=== PATIENT | male | born 1935 | race Caucasian/White ===

== ENCOUNTER 2018-09-17 06:34 | Emergency (ER) | payer MEDICARE, OTHER ==
[~2018-09-17] VITALS: Ht 172.7 cm; Wt 81.8 kg
[~2018-09-17 06:34] MED LIST: ASPI81TA52 PO; FLO0.4C PO; OMEP40CA13 PO
[2018-09-17] MEDS ORDERED: aspirin 81mg tab.chew PO ONE (06:40)
[2018-09-17 07:03] LABS: BASOPHILS % (AUTO) 0.3 % (0-1); EOSINOPHILS # (AUTO) 0.1 X10'3 (0-0.9); HEMATOCRIT 45.2 % (42.0-52.0); HEMOGLOBIN 15.8 g/dl (14.0-17.9); LYMPHOCYTES # (AUTO) 1.2 X10'3 (1.1-4.8); LYMPHOCYTES % (AUTO) 8.8 % (21-51); MEAN CORPUSCULAR HEMOGLOBIN 33.4 PG (27.0-31.0); MEAN CORPUSCULAR VOLUME 95.5 FL (78-98); MEAN PLATELET VOLUME 9.2 FL (7.4-10.4); MONOCYTES # (AUTO) 0.8 X10'3 (0-0.9); MONOCYTES % (AUTO) 5.8 % (2-12); NEUTROPHILS # (AUTO) 11.5 X10'3 (1.8-7.7); NEUTROPHILS % (AUTO) 84.1 % (42-75); PLATELET COUNT 270 X10'3 (140-440); RED BLOOD COUNT 4.74 X10'6 (4.70-6.10); RED CELL DISTRIBUTION WIDTH 13.2 % (11.5-14.5); WHITE BLOOD COUNT 13.7 X10'3 (4.5-11.0)
[2018-09-17] MEDS ORDERED: PANT-47 PO (07:15)
[2018-09-17 07:17] LABS: ALANINE AMINOTRANSFERASE 25 U/L (12-78); ALBUMIN 3.7 G/DL (3.4-5.0); ALKALINE PHOSPHATASE 80 IU/L (46-116); ANION GAP 9 (8-16); ASPARTATE AMINO TRANSFERASE 19 U/L (10-37); BILIRUBIN,TOTAL 0.6 MG/DL (0.1-1.0); BLOOD UREA NITROGEN 16 MG/DL (7-18); CALCIUM 9.1 MG/DL (8.5-10.1); CHLORIDE 104 MMOL/L (99-107); GLUCOSE 127 MG/DL (70-104); POTASSIUM 4.1 MMOL/L (3.5-5.1); SODIUM 139 MMOL/L (135-145); TOTAL CARBON DIOXIDE 26.4 MMOL/L (24-32); TOTAL PROTEIN 7.4 G/DL (6.4-8.2); eGFR 71 ML/MIN
[2018-09-17 07:25] LABS: MAGNESIUM 2.1 MG/DL (1.5-2.4)
[2018-09-17] MEDS ORDERED: iohexol 300mg/ml 100ml inj. ONE (07:29)
--- NOTE | 2018-09-17 07:42 | NUR ---
PT OUT TO CT VIA [facility] WITH [employer]
--- NOTE | 2018-09-17 08:02 | NUR ---
PT RETURNS FROM CT
[2018-09-17 10:35] VITALS: BP 160/72
== END 2018-09-17 10:52 | disposition home or self-care (01) ==
LOC: ER 06:34
DX: R07.89 Other chest pain (principal); K52.9 Noninfective gastroenteritis and colitis, unspecified; I25.10 Atherosclerotic heart disease of native coronary artery without angina pectoris; E78.00 Pure hypercholesterolemia, unspecified; K21.9 Gastro-esophageal reflux disease without esophagitis; G89.29 Other chronic pain; N40.0 Benign prostatic hyperplasia without lower urinary tract symptoms; Z95.1 Presence of aortocoronary bypass graft; Z79.82 Long term (current) use of aspirin; Z79.899 Other long term (current) drug therapy; Z98.890 Other specified postprocedural states
CPT/HCPCS: 36415; 71045; 71260; 74177; 80053; 83735; 83880; 84484; 85025; 93005; 99284; Q9967

== ENCOUNTER 2018-11-11 09:50 | Observation (INO) | payer MEDICARE, OTHER ==
[~2018-11-11] VITALS: Ht 172.7 cm; Wt 83.0 kg
[~2018-11-11 09:50] MED LIST changes: -OMEP40CA13 PO; +PANT-47 PO
[2018-11-11] MEDS ORDERED: aspirin 325mg tablet PO ONE (10:25)
[2018-11-11 11:04] LABS: BASOPHILS % (AUTO) 0.5 % (0-1); EOSINOPHILS # (AUTO) 0.2 X10'3 (0-0.9); EOSINOPHILS % (AUTO) 2.3 % (0-6); HEMATOCRIT 42.3 % (42.0-52.0); HEMOGLOBIN 14.5 g/dl (14.0-17.9); LYMPHOCYTES # (AUTO) 0.9 X10'3 (1.1-4.8); LYMPHOCYTES % (AUTO) 11.5 % (21-51); MEAN CORPUSCULAR HEMOGLOBIN 32.4 PG (27.0-31.0); MEAN CORPUSCULAR HGB CONC 34.3 g/dL (33.0-36.5); MEAN CORPUSCULAR VOLUME 94.3 FL (78-98); MEAN PLATELET VOLUME 9.1 FL (7.4-10.4); MONOCYTES # (AUTO) 0.7 X10'3 (0-0.9); MONOCYTES % (AUTO) 9.3 % (2-12); NEUTROPHILS # (AUTO) 5.8 X10'3 (1.8-7.7); NEUTROPHILS % (AUTO) 76.4 % (42-75); PLATELET COUNT 240 X10'3 (140-440); RED BLOOD COUNT 4.48 X10'6 (4.70-6.10); RED CELL DISTRIBUTION WIDTH 13.7 % (11.5-14.5); WHITE BLOOD COUNT 7.6 X10'3 (4.5-11.0)
[2018-11-11 11:22] LABS: ALANINE AMINOTRANSFERASE 23 U/L (12-78); ALBUMIN 3.3 G/DL (3.4-5.0); ALBUMIN/GLOBULIN RATIO 0.9 (1.1-1.5); ALKALINE PHOSPHATASE 64 IU/L (46-116); ANION GAP 6 (8-16); BILIRUBIN,TOTAL 0.8 MG/DL (0.1-1.0); BLOOD UREA NITROGEN 29 MG/DL (7-18); BUN/CREATININE RATIO 33.3 (5.4-32.0); CALCIUM 8.6 MG/DL (8.5-10.1); CHLORIDE 107 MMOL/L (99-107); CREATININE 0.87 MG/DL (0.60-1.10); GLUCOSE 98 MG/DL (70-104); SODIUM 140 MMOL/L (135-145); TOTAL CARBON DIOXIDE 26.8 MMOL/L (24-32); TOTAL PROTEIN 6.8 G/DL (6.4-8.2); eGFR 83 ML/MIN
[2018-11-11 11:29] LABS: ASPARTATE AMINO TRANSFERASE 22 U/L (10-37); POTASSIUM 4.4 MMOL/L (3.5-5.1)
[2018-11-11 11:37] LABS: PARTIAL THROMBOPLASTIN TIME 30 SECONDS (22-32)
[2018-11-11] MEDS: normal saline 1000ml 1,000 ML IV SCH (11:56)
[2018-11-11] MEDS ORDERED: aminophylline 250mg/10ml inj. IV PRN (12:00)
[2018-11-11] MEDS ORDERED: magnesium 2GM in 50ml NS 50 ML IV PRN (12:00)
[2018-11-11] MEDS ORDERED: morphine 2 MG/ML inj. syringe IV PRN ×2 (12:00)
[2018-11-11] MEDS ORDERED: acetaminophen 325mg tablet PO PRN ×2 (12:00)
[2018-11-11] MEDS ORDERED: metoprolol tartrate 1mg/ml inj IV PRN (12:00)
[2018-11-11] MEDS ORDERED: regadenoson 0.4mg/5ml syringe IV PRN (12:00)
[2018-11-11] MEDS ORDERED: nitroGLYCERIN 0.4mg SUBLingual tab SL PRN ×2 (12:00)
[2018-11-11] MEDS ORDERED: ondansetron/PF 4mg/2ml inj IV PRN (12:00)
[2018-11-11] MEDS ORDERED: magnesium hydroxide 30ml (MOM) UD suspension PO PRN (12:00)
[2018-11-11] MEDS ORDERED: potassium CL 10mEq/100ml bag 100 ML IV PRN ×2 (12:00)
[2018-11-11] MEDS ORDERED: magnesium 4gm in 100ml NS 100 ML IV PRN (12:00)
[2018-11-11] MEDS ORDERED: mag hydrox/Alum hydrox/simeth 30ml oral suspension PO PRN (12:00)
[2018-11-11] MEDS ORDERED: magnesium Cl slow-release 64mg tablet PO PRN (12:00)
[2018-11-11] MEDS ORDERED: potassium Cl 20 mEq SR tablet PO PRN ×2 (12:00)
[2018-11-11 12:49] LABS: PHOSPHORUS 2.8 MG/DL (2.3-4.5)
[2018-11-11 13:30] VITALS: BP 137/69
[2018-11-11 14:05] LABS: MAGNESIUM 2.4 MG/DL (1.5-2.4)
[2018-11-11 15:00] VITALS: BP 107/49
[2018-11-11 18:00] VITALS: BP 120/48
--- NOTE | 2018-11-11 18:10 | NUR ---
Patient in room MED 310. I have received report from GIGI Rodriguez and had the opportunity to ask questions and assume patient care.
[2018-11-11] MEDS ORDERED: LORazepam 1 MG tablet PO PRN (18:45)
[2018-11-11] MEDS: heparin, porcine 5000 units/ml vial SQ SCH (20:08)
[2018-11-11] MEDS ORDERED: tamsulosin 0.4mg capsule PO SCH (21:00)
[2018-11-11] MEDS ORDERED: temazepam 15mg capsule PO PRN (21:00)
[2018-11-11 22:00] VITALS: BP 93/39
[2018-11-12] VITALS (12 sets, daily range): BP systolic 113–177; BP diastolic 51–80
[2018-11-12] MEDS: normal saline 1000ml 1,000 ML IV SCH (02:41)
--- NOTE | 2018-11-12 04:54 | NUR ---
O[facility] documentation: I have reviewed and agree with all interventions, assessments performed and documented by GIGI Locke. [facility] Medication Administration: For this medication-pass time frame, all medication were reviewed, dispensed, administered and documented per hospital policy by GIGI Locke.
[2018-11-12 05:59] LABS: HEMATOCRIT 40.6 % (42.0-52.0); MEAN CORPUSCULAR HEMOGLOBIN 32.7 PG (27.0-31.0); MEAN CORPUSCULAR HGB CONC 34.6 g/dL (33.0-36.5); MEAN CORPUSCULAR VOLUME 94.6 FL (78-98); MEAN PLATELET VOLUME 8.6 FL (7.4-10.4); PLATELET COUNT 226 X10'3 (140-440); RED BLOOD COUNT 4.29 X10'6 (4.70-6.10); RED CELL DISTRIBUTION WIDTH 13.6 % (11.5-14.5); WHITE BLOOD COUNT 6.1 X10'3 (4.5-11.0)
[2018-11-12 06:06] LABS: ALBUMIN 2.9 G/DL (3.4-5.0); ANION GAP 9 (8-16); BLOOD UREA NITROGEN 20 MG/DL (7-18); BUN/CREATININE RATIO 25.3 (5.4-32.0); CALCIUM 8.7 MG/DL (8.5-10.1); CHLORIDE 109 MMOL/L (99-107); CHOL/HDL RATIO 3.7 (0.00-4.99); CHOLESTEROL 176 MG/DL (0-200); CREATININE 0.79 MG/DL (0.60-1.10); GLUCOSE 102 MG/DL (70-104); HDL CHOLESTEROL 48 MG/DL (35-60); LDL CHOLESTEROL 111 MG/DL (50-100); MAGNESIUM 2.2 MG/DL (1.5-2.4); PHOSPHORUS 2.9 MG/DL (2.3-4.5); POTASSIUM 4.4 MMOL/L (3.5-5.1); SODIUM 143 MMOL/L (135-145); TOTAL CARBON DIOXIDE 24.7 MMOL/L (24-32); TRIGLYCERIDES 102 MG/DL (20-135); eGFR > 90 ML/MIN
--- NOTE | 2018-11-12 06:44 | NUR ---
Problems reprioritized. Patient report given, questions answered & plan of care reviewed with Sol RN.
[2018-11-12] MEDS ORDERED: pantoprazole 40mg Tablet.DR PO SCH (08:00)
[2018-11-12] MEDS: aspirin 81mg tablet.DR PO SCH ×2 (08:00→13:34)
[2018-11-12] MEDS ORDERED: K and/or MAG REPLACEMENT MC SCH (08:00)
[2018-11-12] MEDS ORDERED: aspirin 325mg tablet PO SCH (08:30)
--- NOTE | 2018-11-12 09:00 | NUR ---
transferred to [facility] for stress test. Addendum: 11/12/18 at 0921 by Bere Stanley RN Amended: Links added.
[2018-11-12] MEDS: heparin, porcine 5000 units/ml vial SQ SCH (12:28)
[2018-11-12] MEDS ORDERED: ATOR10TA87 PO (13:42)
[2018-11-12] MEDS ORDERED: LISI-600 PO (13:42)
== END 2018-11-12 15:30 | disposition home or self-care (01) ==
LOC: ER 09:50 → MED 3N 17:52 → INTOOBSV 17:52 → UNDOADMOB 17:52 → MED 3N 18:44
PROVIDERS: ADMIT Family Medicine; ATTEND Family Medicine
DX: I25.119 Atherosclerotic heart disease of native coronary artery with unspecified angina pectoris (principal); E78.00 Pure hypercholesterolemia, unspecified; E78.5 Hyperlipidemia, unspecified; I10 Essential (primary) hypertension; K21.9 Gastro-esophageal reflux disease without esophagitis; K29.70 Gastritis, unspecified, without bleeding; N40.0 Benign prostatic hyperplasia without lower urinary tract symptoms; Q21.0 Ventricular septal defect; R94.31 Abnormal electrocardiogram [ECG] [EKG]; Z85.828 Personal history of other malignant neoplasm of skin; Z86.010 Personal history of colon polyps; Z87.442 Personal history of urinary calculi; Z95.1 Presence of aortocoronary bypass graft; Z87.39 Personal history of other diseases of the musculoskeletal system and connective tissue; Z86.79 Personal history of other diseases of the circulatory system; Z79.82 Long term (current) use of aspirin; Z79.899 Other long term (current) drug therapy
CPT/HCPCS: 36415; 71045; 78452; 80048; 80053; 80061; 83735; 83880; 84100; 84484; 85025; 85027; 85610; 85730; 87081; 93005; 93017; 93306; 96372; 99284; A9500; G0378; J0280; J1644; J2785; J7030; 99285

== ENCOUNTER 2019-01-14 08:13 | Emergency (ER) | payer MEDICARE, OTHER ==
[~2019-01-14] VITALS: Ht 172.7 cm; Wt 85.0 kg
[2019-01-14 08:55] LABS: BASOPHILS % (AUTO) 0.5 % (0-1); EOSINOPHILS # (AUTO) 0.2 X10'3 (0-0.9); EOSINOPHILS % (AUTO) 2.8 % (0-6); HEMATOCRIT 45.9 % (42.0-52.0); HEMOGLOBIN 16.1 g/dl (14.0-17.9); LYMPHOCYTES % (AUTO) 14.1 % (21-51); MEAN CORPUSCULAR HEMOGLOBIN 32.5 PG (27.0-31.0); MONOCYTES # (AUTO) 0.6 X10'3 (0-0.9); NEUTROPHILS # (AUTO) 5.2 X10'3 (1.8-7.7); NEUTROPHILS % (AUTO) 74.6 % (42-75); PLATELET COUNT 254 X10'3 (140-440); RED BLOOD COUNT 4.94 X10'6 (4.70-6.10); RED CELL DISTRIBUTION WIDTH 12.9 % (11.5-14.5); WHITE BLOOD COUNT 6.9 X10'3 (4.5-11.0)
--- NOTE | 2019-01-14 09:17 | NUR ---
pt out to ct via wheelchair with direct support staff member
[2019-01-14 09:33] LABS: ALANINE AMINOTRANSFERASE 23 U/L (12-78); ALBUMIN 3.4 G/DL (3.4-5.0); ALKALINE PHOSPHATASE 77 IU/L (46-116); ANION GAP 7 (8-16); ASPARTATE AMINO TRANSFERASE 25 U/L (10-37); BILIRUBIN,TOTAL 0.5 MG/DL (0.1-1.0); BLOOD UREA NITROGEN 24 MG/DL (7-18); BUN/CREATININE RATIO 28.6 (5.4-32.0); CHLORIDE 104 MMOL/L (99-107); CREATININE 0.84 MG/DL (0.60-1.10); GLUCOSE 118 MG/DL (70-104); POTASSIUM 4.1 MMOL/L (3.5-5.1); SODIUM 139 MMOL/L (135-145); TOTAL CARBON DIOXIDE 28.3 MMOL/L (24-32); TOTAL PROTEIN 6.9 G/DL (6.4-8.2); eGFR 87 ML/MIN
--- NOTE | 2019-01-14 09:41 | NUR ---
pt returns from ct
[2019-01-14 09:45] LABS: PHOSPHORUS 2.6 MG/DL (2.3-4.5)
[2019-01-14] MEDS ORDERED: MECL-111 PO (10:22)
[2019-01-14] MEDS ORDERED: meclizine 12.5mg tablet PO ONE (10:25)
[2019-01-14 10:43] VITALS: BP 155/87
== END 2019-01-14 10:47 | disposition home or self-care (01) ==
LOC: ER 08:14
DX: R42 Dizziness and giddiness (principal); I25.10 Atherosclerotic heart disease of native coronary artery without angina pectoris; E78.00 Pure hypercholesterolemia, unspecified; K21.9 Gastro-esophageal reflux disease without esophagitis; G89.29 Other chronic pain; Z95.1 Presence of aortocoronary bypass graft; Z98.890 Other specified postprocedural states; Z79.82 Long term (current) use of aspirin; Z79.899 Other long term (current) drug therapy
CPT/HCPCS: 36415; 70450; 71045; 80053; 83735; 84100; 84484; 85025; 93005; 99284; J8597

== ENCOUNTER 2019-03-20 07:24 | Emergency (ER) | payer MEDICARE, OTHER ==
[~2019-03-20] VITALS: Ht 172.7 cm; Wt 83.6 kg
[~2019-03-20 07:24] MED LIST changes: +MECL-159 PO
--- NOTE | 2019-03-20 08:13 | NUR ---
PATIENT HAS HX CHRONIC LOW BACK PAIN WITH 3 PAST SURGERIES. STARTED TO HAVE PAIN YESTERDAY THAT DID NOT LET UP. TOOK PERCOCET LAST NIGHT WITH MINIMAL RELIEF.
[2019-03-20] MEDS ORDERED: ketorolac tromethamine 15mg/ml inj. IM ONE (08:35)
[2019-03-20] MEDS ORDERED: orphenadrine citrate 60mg/2ml inj. IM ONE (08:35)
[2019-03-20] MEDS ORDERED: NAPR-56 PO (08:49)
[2019-03-20] MEDS ORDERED: METH-360 PO (08:49)
[2019-03-20 09:14] VITALS: BP 159/87
== END 2019-03-20 09:26 | disposition home or self-care (01) ==
LOC: ER 07:24
DX: G89.29 Other chronic pain (principal); M54.5 Low back pain; I25.10 Atherosclerotic heart disease of native coronary artery without angina pectoris; E78.00 Pure hypercholesterolemia, unspecified; K21.9 Gastro-esophageal reflux disease without esophagitis; Z87.442 Personal history of urinary calculi; Z95.1 Presence of aortocoronary bypass graft; Z98.890 Other specified postprocedural states; Z79.82 Long term (current) use of aspirin; Z79.899 Other long term (current) drug therapy
CPT/HCPCS: 96372; 99283; J1885; J2360

== ENCOUNTER 2019-11-10 09:23 | Outpatient (CLI) | payer MEDICARE, OTHER ==
[2019-11-10] VITALS (18 sets, daily range): BP systolic 81–158; BP diastolic 52–83
[~2019-11-10 09:23] MED LIST changes: +METH-360 PO
== END 2019-11-10 23:59 | disposition home or self-care (01) ==
LOC: CARD DIAG 09:23
PROVIDERS: ATTEND Internal Medicine Cardiovascular Disease
DX: R55 Syncope and collapse (principal)
CPT/HCPCS: 93660

== ENCOUNTER 2020-01-25 01:40 | Emergency (ER) | payer MEDICARE, OTHER ==
[~2020-01-25] VITALS: Ht 172.7 cm; Wt 84.4 kg
[2020-01-25 01:41] VITALS: BP 193/87
[2020-01-25] MEDS ORDERED: morphine 4 MG/ML inj SYRINge IM ONE (02:40)
== END 2020-01-25 02:50 | disposition home or self-care (01) ==
LOC: ER 01:40
DX: M54.42 Lumbago with sciatica, left side (principal); M54.41 Lumbago with sciatica, right side; I25.10 Atherosclerotic heart disease of native coronary artery without angina pectoris; E78.00 Pure hypercholesterolemia, unspecified; K21.9 Gastro-esophageal reflux disease without esophagitis; G89.29 Other chronic pain; Z87.442 Personal history of urinary calculi; Z90.89 Acquired absence of other organs; Z98.890 Other specified postprocedural states; Z72.89 Other problems related to lifestyle; Z79.82 Long term (current) use of aspirin; Z79.899 Other long term (current) drug therapy
CPT/HCPCS: 96372; 99283; J2270

== ENCOUNTER 2020-10-01 20:01 | Emergency (ER) | payer MEDICARE, OTHER ==
[~2020-10-01] VITALS: Ht 170.2 cm; Wt 81.8 kg
[2020-10-01 20:39] LABS: BASOPHILS % (AUTO) 0.4 % (0-1); EOSINOPHILS # (AUTO) 0.1 X10'3 (0-0.9); EOSINOPHILS % (AUTO) 1.3 % (0-6); HEMATOCRIT 40.8 % (42.0-52.0); HEMOGLOBIN 14.2 g/dl (14.0-17.9); LYMPHOCYTES # (AUTO) 0.5 X10'3 (1.1-4.8); LYMPHOCYTES % (AUTO) 8.2 % (21-51); MEAN CORPUSCULAR HEMOGLOBIN 32.8 PG (27.0-31.0); MEAN CORPUSCULAR HGB CONC 34.9 g/dL (33.0-36.5); MEAN PLATELET VOLUME 9.3 FL (7.4-10.4); MONOCYTES # (AUTO) 0.9 X10'3 (0-0.9); MONOCYTES % (AUTO) 14.4 % (2-12); NEUTROPHILS # (AUTO) 4.7 X10'3 (1.8-7.7); NEUTROPHILS % (AUTO) 75.7 % (42-75); PLATELET COUNT 135 X10'3 (140-440); RED BLOOD COUNT 4.33 X10'6 (4.70-6.10); WHITE BLOOD COUNT 6.3 X10'3 (4.5-11.0)
[2020-10-01 20:56] LABS: ALANINE AMINOTRANSFERASE 26 U/L (12-78); ALBUMIN 2.8 G/DL (3.4-5.0); ALBUMIN/GLOBULIN RATIO 0.9 (1.1-1.5); ALKALINE PHOSPHATASE 98 IU/L (46-116); ANION GAP 6 (8-16); ASPARTATE AMINO TRANSFERASE 43 U/L (10-37); BILIRUBIN,TOTAL 0.3 MG/DL (0.1-1.0); BLOOD UREA NITROGEN 25 MG/DL (7-18); BUN/CREATININE RATIO 25.3 (5.4-32.0); CALCIUM 7.9 MG/DL (8.5-10.1); CHLORIDE 107 MMOL/L (99-107); CREATININE 0.99 MG/DL (0.60-1.10); GLUCOSE 147 MG/DL (70-104); POTASSIUM 3.7 MMOL/L (3.5-5.1); SODIUM 140 MMOL/L (135-145); TOTAL CARBON DIOXIDE 26.6 MMOL/L (24-32); eGFR 72 ML/MIN
[2020-10-01 21:05] LABS: TROPONIN I < 0.04 NG/ML (0.0-0.05)
[2020-10-01 21:19] LABS: C-REACTIVE PROTEIN 5.18 MG/DL (0.0-0.5); LACTATE DEHYDROGENASE 153 U/L (85-227)
[2020-10-01] MEDS ORDERED: dexamethasone 4mg tablet PO ONE (21:40)
[2020-10-01] MEDS ORDERED: CASIRIVIMAB (REGN10933) 1332MG 600 MG, IMDEVIMAB (REGN10987) 1332mg 600 MG in normal sa... IV ONE (22:45)
[2020-10-02] MEDS ORDERED: ALBU8HFA PO (00:01)
[2020-10-02] MEDS ORDERED: BENZ-16 PO (00:01)
[2020-10-02] MEDS ORDERED: DEXA6TAB6 PO (00:01)
--- NOTE | 2020-10-02 00:23 | NUR ---
incentive spirometer and instructions given. pt demonstrated understaing.
[2020-10-02 01:23] VITALS: BP 157/62
== END 2020-10-02 01:29 | disposition home or self-care (01) ==
LOC: ER 20:02
DX: U07.1 COVID-19 (principal); J12.82 Pneumonia due to coronavirus disease 2019; I25.10 Atherosclerotic heart disease of native coronary artery without angina pectoris; E78.00 Pure hypercholesterolemia, unspecified; K21.9 Gastro-esophageal reflux disease without esophagitis; N40.0 Benign prostatic hyperplasia without lower urinary tract symptoms; G89.29 Other chronic pain; Z87.442 Personal history of urinary calculi; Z95.5 Presence of coronary angioplasty implant and graft; Z72.89 Other problems related to lifestyle; Z79.82 Long term (current) use of aspirin; Z79.899 Other long term (current) drug therapy
CPT/HCPCS: 36415; 71045; 80053; 83615; 83880; 84484; 85025; 86140; 87502; 87503; 87635; 93005; 99285; C9803; M0243; Q0243

== ENCOUNTER 2021-12-04 18:04 | Emergency (ER) | payer MEDICARE, OTHER ==
[~2021-12-04] VITALS: Ht 172.7 cm; Wt 81.8 kg
[~2021-12-04 18:04] MED LIST changes: +DEXA6TAB6 PO
[2021-12-04 18:08] VITALS: BP 171/82
== END 2021-12-04 19:28 | disposition home or self-care (01) ==
LOC: ER 18:05
DX: R04.0 Epistaxis (principal); I25.10 Atherosclerotic heart disease of native coronary artery without angina pectoris; E78.00 Pure hypercholesterolemia, unspecified; K21.9 Gastro-esophageal reflux disease without esophagitis; G89.29 Other chronic pain; Z87.442 Personal history of urinary calculi; Z98.890 Other specified postprocedural states; Z90.89 Acquired absence of other organs; Z72.89 Other problems related to lifestyle; Z79.82 Long term (current) use of aspirin; Z79.899 Other long term (current) drug therapy
CPT/HCPCS: 99284

== ENCOUNTER 2022-08-11 08:28 | Outpatient (CLI) | payer MEDICARE, OTHER | END 2022-08-11 23:59 | disposition home or self-care (01) | LOC: VAS 08:28 | PROVIDERS: ATTEND Surgery | DX: I65.23 Occlusion and stenosis of bilateral carotid arteries (principal) | CPT/HCPCS: 93880 ==